=== PATIENT | male | born 1965 | race Caucasian/White ===

== ENCOUNTER 2017-04-02 05:57 | Day surgery (SDC) | payer OTHER ==
[2017-04-02] MEDS ORDERED: DIPRIVAN 200 MG/20 ML IV ONE (05:58)
[2017-04-02] MEDS ORDERED: Ketamine HCl 50 MG/ML IV ONE (05:58)
[2017-04-02] MEDS ORDERED: Lactated Ringers 1,000 ML IV ONE (06:33)
[2017-04-02] MEDS ORDERED: Lactated Ringers 1,000 ML IV SCH (07:00)
[2017-04-02 08:01] VITALS: O2SAT 97
[2017-04-02 08:03] VITALS: BP 135/82; PULSE 69
--- NOTE | 2017-04-02 09:55 | OP ---
SURGERY DATE/TIME: 04/02/2017 0644 PREOPERATIVE DIAGNOSIS: Screening exam. POSTOPERATIVE DIAGNOSIS: Normal colon. PROCEDURE: Colonoscopy. SURGEON: Dr. Womack. ANESTHESIA: MAC. Medications given by anesthesia department. HISTORY: The patient is a 51 year-old white male patient presenting now for colonoscopic evaluation. He was appraised of the risks of the procedure including the risk of perforation, phlebitis, untoward reaction to medication, bleeding and missed lesions. The patient verbalized his understanding and desired to have the procedure performed. DESCRIPTION OF PROCEDURE: The patient was given the medications by the anesthesia department. He had continuous pulse oximetry, ECG monitoring, intermittent blood pressure monitoring, and tidal CO2 monitoring during the examination. He was placed in the left lateral decubitus position. A digital rectal examination was performed and revealed normal anal sphincter tone, no masses and normal prostate. The flexible Olympus pediatric colonoscope was used to intubate the rectum. A view of the colon was developed sequentially to the cecum. Upon insertion and withdrawal, including a retroflex view in the rectum, no mucosal lesions were encountered. The scope was removed from the patient who tolerated the procedure well and was sent back to OP recovery in good condition. The prep was noted to be fair to good.
== END 2017-04-02 08:05 | disposition home or self-care (01) ==
LOC: SDC 05:57
PROVIDERS: ATTEND Family Medicine
PROC: 0DJD8ZZ Inspection of Lower Intestinal Tract, Via Natural or Artificial Opening Endoscopic (ICD-10-PCS; principal; 2017-04-02)
DX: Z12.11 Encounter for screening for malignant neoplasm of colon (principal)
CPT/HCPCS: 00810; J2704